=== PATIENT | male | born 1985 | race Asian ===

== ENCOUNTER 2018-12-06 04:39 | Emergency (ER) | payer OTHER ==
[2018-12-06] MEDS ORDERED: Ondansetron ODT TAB* 4 MG SL ONE (04:42)
[2018-12-06] MEDS ORDERED: LORazepam TAB(*) 1 MG PO ONE (04:42)
--- NOTE | 2018-12-06 04:51 | ED ---
Substance Abuse/Use - HPI Summary HPI Summary: This pt is a 33 Y/O M brought in by EMS to [facility] for alcohol intoxication. Per EMS the pt was hyperventilating after vomiting, prompting his friends to call EMS. HE IS A LEVEL 5 CAVEAT DUE TO HIS UNRESPONSIVENESS FROM ALCOHOL INTOXICATION. - History Of Current Complaint Stated Complaint: ETOH PER EMS Hx Obtained From: EMS PMH/Surg Hx/FS Hx/Imm Hx Previously Healthy: Yes - UNOBTAINABLE DUE TO THE PT'S UNRESPONSIVENESS FROM ALCOHOL INTOXICATION Infectious Disease History: No Infectious Disease History: Denies: Traveled Outside the [place] in Last 30 Days Review of Systems - ROS Summary Review of Systems Summary: A FULL ROS IS UNOBTAINABLE DUE TO THE PT'S UNRESPONSIVENESS FROM ALCOHOL INTOXICATION. Positive: Vomiting All Other Systems Reviewed And Are Negative: No Physical Exam - Summary Physical Exam Summary: Appearance: Well-appearing, Well-nourished, lying in bed comfortable Skin: Warm, dry, no obvious rash Eyes: sclera anicteric, no conjunctival pallor ENT: mucous membranes moist Neck: deferred Respiratory: No signs of respiratory distress Cardiovascular: Appears well perfused, pulses are nml Abdomen: deferred Musculoskeletal: Moving all 4 extremities without obvious discomfort Neurological: Awake and alert, mentation is normal, speech is fluent and appropriate Psychiatric: affect is normal, does not appear anxious or depressed Triage Information Reviewed: Yes Vital Signs On Initial Exam: Initial Vitals Temp Pulse Resp BP Pulse Ox 97.6 F 83 18 117/76 100 12/06/18 04:43 12/06/18 04:43 12/06/18 04:43 12/06/18 04:43 12/06/18 04:43 Vital Signs Reviewed: Yes Completion Of Physical Exam Limited Due To: Level 5 - ALCOHOL INTOXICATION Diagnostics - Vital Signs Vital Signs Temp Pulse Resp BP Pulse Ox 12/06/18 04:43 97.6 F 83 18 117/76 100 - Laboratory Lab Statement: Any lab studies that have been ordered have been reviewed, and results considered in the medical decision making process. - EKG 0535 Cardiac Rate: NL - 63 BPM EKG Rhythm: Sinus Rhythm ST Segment: Normal Ectopy: None EKG Comparison: No Significant Change Summary of EKG Findings: EKG at 0536 shows a NSR at 63 BPM, P waves, QRS complex , and T waves are within normal limits, T waves and intervals are normal, no ischemic changes. This is a normal EKG. Interpreted by Dr. Azul at 0537 2018. Course/Dx - Course Course Of Treatment: This pt is a 33 Y/O M brought in by EMS to [facility] for alcohol intoxication. Per EMS the pt was hyperventilating after vomiting, prompting his friends to call EMS. HE IS A LEVEL 5 CAVEAT DUE TO HIS UNRESPONSIVNESS FROM ALCOHOL INTOXICATION. EKG at 0536 shows a NSR at 63 BPM, P waves, QRS complex, and T waves are within normal limits, T waves and intervals are normal, no ischemic changes. This pt is a sign out to Dr. Yang from Dr. Azul at shift change 0700 12/06/18 pending sobriety. - Diagnoses Provider Diagnoses: Alcohol intoxication Discharge ED - Sign-Out/Discharge Documenting (check all that apply): Sign-Out Patient Signing out patient TO: Derrick Yang Patient Received Moderate/Deep Sedation with Procedure: No - Discharge Plan Condition: Stable Disposition: HOME Patient Education Materials: Alcohol Intoxication (ED) Referrals: [facility] - MRRaul [Primary Care Provider] - 3 Days Additional Instructions: Follow up with [facility] in 3 days. Return to the Emergency Department for new or worsening symptoms. - Billing Disposition and Condition Condition: STABLE Disposition: Home - Attestation Statements Document Initiated by Purnima: Yes Documenting Scribe: Qasim León Provider For Whom Narcisaibe is Documenting (Include Credential): Lamine Azul MD Scribe Attestation: Qasim Murray, scribed for Lamine Azul MD on 12/06/18 at 1850. Scribe Documentation Reviewed: Yes Provider Attestation: The documentation as recorded by the Qasim ardon accurately reflects the service I personally performed and the decisions made by me, Lamine Azul MD Status of Scribe Document: Viewed
[2018-12-06] MEDS ORDERED: Ondansetron ODT TAB* 4 MG ONE (05:03)
[2018-12-06] MEDS ORDERED: Ondansetron INJ* 2 MG/ML VIAL IV ONE (05:05)
--- NOTE | 2018-12-06 07:24 | ED ---
Progress - Progress Note Progress Note: This patient was signed out from Dr. Azul upon shift change on 12/06/18 at 07: 00, pending sobriety and disposition. Re-Evaluation - Re-Evaluation First Eval Re-Evaluation Time: 09:09 Comment: patient is awake and ready for discharge Course/Dx - Course Course Of Treatment: The patient was signed out from Dr. Asencio at shift change. The patient is alert and oriented 3, the patient is sober, the patient is ambulating with a good, steady walk, the patient is eating and drinking without any nausea/vomiting. Therefore, the patient will be discharged home with follow-up with PCP. Patient is hemodynamically stable alert oriented 3. - Diagnoses Provider Diagnoses: Alcohol intoxication Discharge ED - Sign-Out/Discharge Documenting (check all that apply): Patient Departure - Discharge Patient Received Moderate/Deep Sedation with Procedure: No - Discharge Plan Condition: Stable Disposition: HOME Patient Education Materials: Alcohol Intoxication (ED) Referrals: [facility] - MRRaul [Primary Care Provider] - 3 Days Additional Instructions: Follow up with [facility] in 3 days. Return to the Emergency Department for new or worsening symptoms. - Billing Disposition and Condition Condition: STABLE Disposition: Home - Attestation Statements Document Initiated by Scribe: Yes Documenting Scribe: Rupinder Cool Provider For Whom Purnima is Documenting (Include Credential): Derrick Yang MD Scribe Attestation: Rupinder Murray, scribed for Derrick Yang MD on 12/06/18 at 1855. Scribe Documentation Reviewed: Yes Provider Attestation: The documentation as recorded by the Rupinder ardon accurately reflects the service I personally performed and the decisions made by me, Derrick Yang MD Status of Scribe Document: Viewed
[2018-12-06 10:20] VITALS: BP 121/88
== END 2018-12-06 09:20 | disposition home or self-care (01) ==
LOC: ED 04:39
DX: F10.929 Alcohol use, unspecified with intoxication, unspecified (principal)
CPT/HCPCS: 36415; 80320; 93005; 96374; 99282; A9270-GY; G0480; J2405